=== PATIENT | female | born 1985 | race African-American/Black ===

== ENCOUNTER 2019-01-20 20:08 | Emergency (ER) | payer MEDICAID ==
[~2019-01-20] VITALS: Ht 167.6 cm; Wt 62.0 kg
[~2019-01-20 20:08] MED LIST: [UNRECOGNIZED DRUG - OTHER]
[2019-01-20 20:37] VITALS: BP 124/76
== END 2019-01-20 21:00 | disposition left against medical advice (07) ==
LOC: ER 20:30
DX: M25.512 Pain in left shoulder (principal); Z53.21 Procedure and treatment not carried out due to patient leaving prior to being seen by health care provider

== ENCOUNTER 2019-01-21 12:24 | Emergency (ER) | payer MEDICAID ==
[~2019-01-21] VITALS: Ht 167.6 cm; Wt 58.0 kg
[2019-01-21] MEDS ORDERED: KETOROLAC 60MG/2ML VIAL IM STA (14:12)
[2019-01-21 16:22] VITALS: BP 118/77
== END 2019-01-21 16:26 | disposition home or self-care (01) ==
LOC: ER 12:24
DX: S39.012A Strain of muscle, fascia and tendon of lower back, initial encounter (principal); M25.512 Pain in left shoulder; F12.10 Cannabis abuse, uncomplicated; Z90.49 Acquired absence of other specified parts of digestive tract; Z98.890 Other specified postprocedural states; Z88.0 Allergy status to penicillin; V43.52XA Car driver injured in collision with other type car in traffic accident, initial encounter; Y93.89 Activity, other specified; Y92.488 Other paved roadways as the place of occurrence of the external cause
CPT/HCPCS: 72100; 73030; 96372; 99283; J1885